=== PATIENT | female | born 1970 | race Caucasian/White ===

== ENCOUNTER 2022-05-09 18:32 | Outpatient (REF) | payer OTHER, SELFPAY ==
[2022-05-09 15:44] LABS: Prothrombin Time 36.8 sec (9.3-11.0)
== END 2022-05-09 18:33 | disposition home or self-care (01) ==
LOC: NCHCN 18:32
PROVIDERS: Visit Provider Nurse Practitioner Family
DX: D68.8 Other specified coagulation defects (principal)
CPT/HCPCS: 85610

== ENCOUNTER 2022-10-07 20:58 | Outpatient (REF) | payer OTHER, SELFPAY ==
[2022-10-07 21:17] LABS: HCT 43.9 % (36.0-46.0); HGB 14.7 g/dL (11.2-15.7); MCH 30.6 pg (27.0-33.0); MCHC 33.5 % (32.0-36.0); MCV 91 fL (80-95); MPV 11.6 fL (8.0-11.0); Platelet Count 204 10^3/uL (130-400); RBC 4.81 10^6/uL (3.93-5.22); RDW 13.2 % (11.7-14.6); RDW-SD 44.8 fL; WBC 10.53 10^3/uL (4.4-10.8)
[2022-10-07 21:47] LABS: ALT 55 U/L (14-59); AST 41 U/L (15-37); Albumin 4.3 g/dL (3.4-5.0); Alkaline Phosphatase 150 U/L (46-116); Anion Gap 9.7 mmol/L (3-11); BUN 24 mg/dL (7-18); Bilirubin, Total 0.7 mg/dL (0.2-1.0); CO2 24.3 mmol/L (21.0-32.0); CREATININE 1.1 mg/dL (0.55-1.02); Calcium 9.8 mg/dL (8.5-10.1); Chloride 103 mmol/L (98-107); Estimated GFR 60.46 (mL/min/1.73m2); Glucose 84 mg/dL (74-106); Potassium 4.1 mmol/L (3.5-5.1); Sodium 137 mmol/L (136-145); TSH (W/Ref FT4) 1.97 uIU/mL (0.36-3.74); Total Protein 8.2 g/dL (6.4-8.2)
== END 2022-10-07 20:59 | disposition home or self-care (01) ==
LOC: NCHCN 20:58
PROVIDERS: Visit Provider Family Medicine
DX: E78.5 Hyperlipidemia, unspecified (principal); R23.2 Flushing; Z00.00 Encounter for general adult medical examination without abnormal findings
CPT/HCPCS: 80053; 85027; 83036; 84443

== ENCOUNTER 2022-10-23 17:51 | Outpatient (REF) | payer OTHER, SELFPAY ==
[2022-10-23 21:58] LABS: ALT 66 U/L (14-59); AST 34 U/L (15-37); Albumin 4.2 g/dL (3.4-5.0); Alkaline Phosphatase 150 U/L (46-116); BUN 28 mg/dL (7-18); Bilirubin, Total 0.3 mg/dL (0.2-1.0); CREATININE 1.2 mg/dL (0.55-1.02); Calcium 9.5 mg/dL (8.5-10.1); Calculated LDL 76 mg/dL (<100); Chloride 104 mmol/L (98-107); Cholesterol 157 mg/dL (<200); Estimated GFR 54.46 (mL/min/1.73m2); Glucose 89 mg/dL (74-106); HDL Cholesterol 59 mg/dL (40-60); Potassium 4.7 mmol/L (3.5-5.1); Sodium 139 mmol/L (136-145); Triglyceride 114 mg/dL (<150)
== END 2022-10-23 17:52 | disposition home or self-care (01) ==
LOC: NCHCN 17:51
PROVIDERS: Visit Provider Nurse Practitioner Family
DX: E78.5 Hyperlipidemia, unspecified (principal); I51.9 Heart disease, unspecified; Z00.00 Encounter for general adult medical examination without abnormal findings
CPT/HCPCS: 80053; 80061

== ENCOUNTER 2022-11-26 17:49 | Outpatient (REF) | payer OTHER, SELFPAY ==
[2022-11-26 21:32] LABS: Anion Gap 11.8 mmol/L (3-11); BUN 30 mg/dL (7-18); CO2 23.2 mmol/L (21.0-32.0); CREATININE 1.1 mg/dL (0.55-1.02); Calcium 10.1 mg/dL (8.5-10.1); Chloride 104 mmol/L (98-107); Estimated GFR 60.46 (mL/min/1.73m2); Glucose 79 mg/dL (74-106); Sodium 139 mmol/L (136-145)
== END 2022-11-26 17:50 | disposition home or self-care (01) ==
LOC: NCHCN 17:49
PROVIDERS: Visit Provider Nurse Practitioner Family
DX: R74.8 Abnormal levels of other serum enzymes (principal)
CPT/HCPCS: 80048

== ENCOUNTER 2023-01-12 17:14 | Outpatient (REF) | payer OTHER, SELFPAY | END 2023-01-12 17:15 | disposition home or self-care (01) | LOC: NCHCN 17:14 | PROVIDERS: Visit Provider Nurse Practitioner Family | DX: R39.15 Urgency of urination (principal) | CPT/HCPCS: 87077; 87086; 87186 ==

== ENCOUNTER 2024-01-27 16:27 | Outpatient (REF) | payer OTHER, SELFPAY ==
[2024-01-27 21:24] LABS: HCT 44.5 % (36.0-46.0); HGB 14.7 g/dL (11.2-15.7); MCH 30.6 pg (27.0-33.0); MCV 93 fL (80-95); MPV 11.1 fL (8.0-11.0); Platelet Count 204 10^3/uL (130-400); RDW 12.5 % (11.7-14.6); RDW-SD 43.1 fL; WBC 7.99 10^3/uL (4.4-10.8)
[2024-01-27 21:37] LABS: ALT 31 U/L (14-59); AST 30 U/L (15-37); Albumin 4.2 g/dL (3.4-5.0); Alkaline Phosphatase 142 U/L (46-116); Anion Gap 12.3 mmol/L (3-11); BUN 23 mg/dL (7-18); Bilirubin, Total 0.8 mg/dL (0.2-1.0); CO2 22.7 mmol/L (21.0-32.0); CREATININE 1.1 mg/dL (0.55-1.02); Calcium 9.5 mg/dL (8.5-10.1); Calculated LDL 62 mg/dL (<100); Chloride 106 mmol/L (98-107); Cholesterol 139 mg/dL (<200); Estimated GFR 60.08 (mL/min/1.73m2); Glucose 81 mg/dL (74-106); HDL Cholesterol 66 mg/dL (40-60); Potassium 4.3 mmol/L (3.5-5.1); Sodium 141 mmol/L (136-145); Total Protein 7.7 g/dL (6.4-8.2); Triglyceride 57 mg/dL (<150)
[2024-01-27 21:46] LABS: Hemoglobin A1C 6.1 % (<5.7)
== END 2024-01-27 16:28 | disposition home or self-care (01) ==
LOC: NCHCN 16:27
PROVIDERS: Visit Provider Nurse Practitioner Family
DX: E78.5 Hyperlipidemia, unspecified (principal); R73.03 Prediabetes; D68.59 Other primary thrombophilia
CPT/HCPCS: 80053; 80061; 85027; 83036

== ENCOUNTER 2025-02-03 15:34 | Outpatient (REF) | payer OTHER, SELFPAY ==
[2025-02-03 15:01] LABS: HCT 43.5 % (36.0-46.0); HGB 14.4 g/dL (11.2-15.7); MCH 30.6 pg (27.0-33.0); MCHC 33.1 % (32.0-36.0); MCV 92 fL (80-95); MPV 11.4 fL (8.0-11.0); Platelet Count 205 10^3/uL (130-400); RBC 4.71 10^6/uL (3.93-5.22); RDW 12.3 % (11.7-14.6); RDW-SD 42.1 fL; WBC 7.55 10^3/uL (4.4-10.8)
[2025-02-03 15:12] LABS: ALT 30 U/L (14-59); AST 33 U/L (15-37); Albumin 3.8 g/dL (3.4-5.0); Alkaline Phosphatase 177 U/L (46-116); Anion Gap 10.2 mmol/L (3-11); BUN 25 mg/dL (7-18); Bilirubin, Total 0.6 mg/dL (0.2-1.0); CO2 22.8 mmol/L (21.0-32.0); Calcium 9.4 mg/dL (8.5-10.1); Calculated LDL 59 mg/dL (<100); Chloride 106 mmol/L (98-107); Cholesterol 129 mg/dL (<200); Estimated GFR 66.95 (mL/min/1.73m2); Glucose 118 mg/dL (74-106); HDL Cholesterol 60 mg/dL (>or=50); Potassium 4.7 mmol/L (3.5-5.1); Sodium 139 mmol/L (136-145); Total Protein 7.4 g/dL (6.4-8.2); Triglyceride 52 mg/dL (<150)
== END 2025-02-03 15:35 | disposition home or self-care (01) ==
LOC: NCHCN 15:34
PROVIDERS: PCP Nurse Practitioner Family; Visit Provider Nurse Practitioner Family
DX: E78.5 Hyperlipidemia, unspecified (principal); D68.59 Other primary thrombophilia
CPT/HCPCS: 80053; 80061; 85027

== ENCOUNTER 2025-03-30 18:14 | Outpatient (REF) | payer OTHER, SELFPAY ==
[2025-03-30 21:11] LABS: Prothrombin Time 37.3 sec (9.1-11.1)
[2025-03-30 21:40] LABS: INR 4.1 (0.9-1.1)
== END 2025-03-30 18:15 | disposition home or self-care (01) ==
LOC: NCHCN 18:14
PROVIDERS: PCP Nurse Practitioner Family; Visit Provider Nurse Practitioner Family
DX: Z79.01 Long term (current) use of anticoagulants (principal)
CPT/HCPCS: 85610

== ENCOUNTER 2025-05-17 17:13 | Outpatient (REF) | payer OTHER, SELFPAY ==
[2025-05-17 21:52] LABS: ALT 29 U/L (14-59); AST 22 U/L (15-37); Albumin 4.1 g/dL (3.4-5.0); Alkaline Phosphatase 171 U/L (46-116); Anion Gap 10.6 mmol/L (3-11); BUN 24 mg/dL (7-18); Bilirubin, Total 0.6 mg/dL (0.2-1.0); CO2 25.4 mmol/L (21.0-32.0); Calcium 9.2 mg/dL (8.5-10.1); Chloride 105 mmol/L (98-107); Estimated GFR 66.95 (mL/min/1.73m2); GGT 82 U/L (5-55); Glucose 93 mg/dL (74-106); Potassium 4.1 mmol/L (3.5-5.1); Sodium 141 mmol/L (136-145); TSH (W/Ref FT4) 2.03 uIU/mL (0.36-3.74); Total Protein 7.7 g/dL (6.4-8.2)
[2025-05-18 18:42] LABS: HBs Antibody, Quant <3.1 mIU/mL (See Note); Hepatitis B Surface Ab Negative (See Note)
[2025-05-18 19:22] LABS: Hepatitis C Ab w Rflx HCV PCR Negative (Negative)
== END 2025-05-17 17:14 | disposition home or self-care (01) ==
LOC: NCHCN 17:13
PROVIDERS: PCP Nurse Practitioner Family; Visit Provider Nurse Practitioner Family
DX: R74.8 Abnormal levels of other serum enzymes (principal)
CPT/HCPCS: 80053; 86706; 86803; 82977; 83970; 84100; 84443

== ENCOUNTER 2025-06-28 19:44 | Outpatient (REF) | payer OTHER, SELFPAY ==
--- NOTE | 2025-06-28 16:30 | PAPFT_PTH ---
PATIENT: Birdie Burr LOC: [facility]#:[id number] AGE/SX: 55/F ROOM: RE06/28/[address]: Marichuy Johnston : 1970 BED: DIS: 06/28/2025 SPEC #: [id number] RECD: 06/29/25 12:55 STATUS: RENEE REQ #: [id number] LISA: 06/28/25 16:[address]: Marichuy Johnston DEPT: [facility] Cytology RECD BY: Fatoumata Dean Tissues: 1 - CX/ENDOCX FOR PAP SMEARS Procedures: PAP THIN PREP/[facility] Screening HPV DNA PROBE Comments: [id number] (HPV 16 & 18/45) (CHLAMYDIA/GC)
[2025-06-30 11:45] LABS: Chlamydia Result Negative (Negative); GC Result Negative (Negative)
== END 2025-06-28 19:45 | disposition home or self-care (01) ==
LOC: NCHCN 19:44
PROVIDERS: PCP Nurse Practitioner Family; Visit Provider Nurse Practitioner Family
DX: Z11.3 Encounter for screening for infections with a predominantly sexual mode of transmission (principal); Z12.4 Encounter for screening for malignant neoplasm of cervix
CPT/HCPCS: 87491; 87591; 88142; 87624

== ENCOUNTER 2025-09-06 16:43 | Outpatient (REF) | payer OTHER, SELFPAY ==
[2025-09-06 21:25] LABS: Vitamin D 25 Total 23 ng/mL (30-100)
== END 2025-09-06 16:44 | disposition home or self-care (01) ==
LOC: NCHCN 16:43
PROVIDERS: PCP Nurse Practitioner Family; Visit Provider Nurse Practitioner Family
DX: R79.89 Other specified abnormal findings of blood chemistry (principal)
CPT/HCPCS: 82306